=== PATIENT | female | born 1970 | race Caucasian/White ===

== ENCOUNTER 2017-06-01 07:33 | Emergency (ER) | payer OTHER ==
[2017-06-01 08:09] VITALS: BP 130/62
--- NOTE | 2017-06-01 08:37 | UC ---
Throat Pain/Nasal Tom HPI - HPI Summary HPI Summary: Three weeks of congestion and now cough is getting painful with right neck strain. NO fever. No hemoptysis. - History of Current Complaint Chief Complaint: UCRespiratory Stated Complaint: SWO[place]EN GLANDS Time Seen by Provider: 06/01/17 08:08 Hx Obtained From: Patient Hx Last Menstrual Period: 12 YRS Onset/Duration: Gradual Onset, Lasting Weeks, Still Present Severity: Moderate Pain Intensity: 5 Cough: Nonproductive Associated Signs & Symptoms: Positive: Nasal Discharge. Negative: Fever, Vomiting, Rash - Epiglottits Risk Factors Epiglottis Risk Factors: Negative - Allergies/Home Medications Allergies/Adverse Reactions: Allergies Allergy/AdvReac Type Severity Reaction Status Date / Time No Known Allergies Allergy Verified 06/01/17 07:59 Home Medications: Home Medications Dm/Acetaminophen/Doxylamine [Vicks Nyquil Cold & Flu N] 1 liq PO BEDTIME PRN [History Confirmed 06/01/17] PMH/Surg Hx/FS Hx/Imm Hx Previously Healthy: Yes - Surgical History Surgical History: Yes Surgery Procedure, Year, and Place: Hysterectomy, Cholecystectomy, Oopherectomies, Ovarian Cysts - Family History Known Family History: Positive: Hypertension - Social History Lives: With Family Alcohol Use: Occasionally Substance Use Type: None Smoking Status (MU): Former Smoker Type: Cigarettes Amount Used/How Often: 1/10 PPD Length of Time of Smoking/Using Tobacco: On and Off for 31 Years Have You Smoked in the Last Year: Yes When Did the Patient Quit Smoking/Using Tobacco: 1 week - Immunization History Most Recent Influenza Vaccination: none Review of Systems ENT: Sinus Congestion Respiratory: Cough All Other Systems Reviewed And Are Negative: Yes Physical Exam Triage Information Reviewed: Yes Appearance: Well-Appearing, No Pain Distress, Obese Vital Signs: Initial Vital Signs Temp 98.3 F 06/01/17 08:02 Pulse 71 06/01/17 08:02 Resp 18 06/01/17 08:02 BP 130/62 06/01/17 08:02 Pulse Ox 99 06/01/17 08:02 Vital Signs Reviewed: Yes Eyes: Positive: Conjunctiva Clear ENT: Positive: Pharyngeal erythema, Nasal congestion, TMs normal, Uvula midline. Negative: Nasal drainage, TM bulging, TM dull, TM red, Tonsillar swelling, Tonsillar exudate, Trismus, Muffled voice, Sinus tenderness Neck: Positive: Supple, Nontender, No Lymphadenopathy Respiratory: Positive: Lungs clear, Normal breath sounds, No respiratory distress, No accessory muscle use, Rhonchi. Negative: Respiratory distress, Decreased breath sounds, Accessory muscle use, Crackles, Stridor, Wheezing Cardiovascular: Positive: No Murmur, Pulses Normal, Brisk Capillary Refill Abdomen Description: Positive: No Organomegaly, Soft. Negative: CVA Tenderness (R), CVA Tenderness (L), Distended, Guarding Musculoskeletal: Positive: Strength Intact, ROM Intact, No Edema Neurological: Positive: Alert, Muscle Tone Normal. Negative: Fatigued Psychological: Positive: Age Appropriate Behavior Skin: Negative: rashes Throat Pain/Nasal Course/Dx - Differential Dx/Diagnosis Provider Diagnoses: uri. bronchitis Discharge - Discharge Plan Condition: Good Disposition: HOME Prescriptions: Azithromyxin ZARA (NF) [Z-Zara (Zithromax) 250 mg tabs #6] 2 tab PO .TODAY, THEN 1 DAILY #6 tab Referrals: Delores Hawk MD [Primary Care Provider] -
== END 2017-06-01 08:47 | disposition home or self-care (01) ==
LOC: UCCORT 07:33
DX: J06.9 Acute upper respiratory infection, unspecified (principal); J40 Bronchitis, not specified as acute or chronic; Z87.891 Personal history of nicotine dependence
CPT/HCPCS: 99212; G0463

== ENCOUNTER 2018-05-24 07:28 | Emergency (ER) | payer SELFPAY ==
[2018-05-24 07:38] VITALS: BP 161/51
--- NOTE | 2018-05-24 07:52 | UC ---
Abdominal Pain Female HPI - HPI Summary HPI Summary: 48-year-old female comes to clinic today with a chief complaint of 2 days of lower abdominal pain. It's midline. Hurts more with movement or having a bowel movement or urinating. She's had multiple surgeries it to include a hysterectomy and her gallbladder out. She still has her appendix. No burning with urination. Stools have not changed in consistency but occasionally to have mucus in them. No fevers measured she has had some chills. Pain is moderate to severe. - History of Current Complaint Chief Complaint: UCAbdominalPain Stated Complaint: ABD PAIN Time Seen by Provider: 05/24/18 07:51 Hx Last Menstrual Period: 12 YRS Pain Intensity: 10 Allergies/Adverse Reactions: Allergies Allergy/AdvReac Type Severity Reaction Status Date / Time No Known Allergies Allergy Verified 05/24/18 07:36 Home Medications: Home Medications NK [No Home Medications Reported] 05/24/18 [History Confirmed 05/24/18] PMH/Surg Hx/FS Hx/Imm Hx Previously Healthy: Yes - Surgical History Surgical History: Yes Surgery Procedure, Year, and Place: Hysterectomy, Cholecystectomy, Oopherectomies, Ovarian Cysts - Family History Known Family History: Positive: Hypertension - Social History Alcohol Use: Occasionally Substance Use Type: None Smoking Status (MU): Light Every Day Tobacco Smoker Type: Cigarettes Amount Used/How Often: 1/10 PPD Length of Time of Smoking/Using Tobacco: On and Off Since Age 17 Have You Smoked in the Last Year: Yes When Did the Patient Quit Smoking/Using Tobacco: 1 week - Immunization History Most Recent Influenza Vaccination: none Review of Systems All Other Systems Reviewed And Are Negative: Yes Constitutional: Positive: Chills Skin: Positive: Negative Eyes: Positive: Negative ENT: Positive: Negative Respiratory: Positive: Negative Cardiovascular: Positive: Negative Gastrointestinal: Positive: Abdominal Pain Genitourinary: Positive: Negative Motor: Positive: Negative Neurovascular: Positive: Negative Musculoskeletal: Positive: Negative Neurological: Positive: Negative Psychological: Positive: Negative Is Patient Immunocompromised?: No Physical Exam Triage Information Reviewed: Yes Appearance: Well-Nourished, Ill-Appearing - MILD, Pain Distress - MILD Vital Signs: Initial Vital Signs Temp 98.4 F 05/24/18 07:33 Pulse 104 05/24/18 07:33 Resp 20 05/24/18 07:33 BP 161/51 05/24/18 07:33 Pulse Ox 100 05/24/18 07:33 Vital Signs Reviewed: Yes Eye Exam: Normal Eyes: Positive: Conjunctiva Clear Neck exam: Normal Neck: Positive: Supple Respiratory: Positive: Lungs clear, Normal breath sounds, No respiratory distress Cardiovascular: Positive: Tachycardia Bowel Sounds: Positive: Hypoactive Pelvic Exam: Positive: Other - Patient is tender to palpation in the suprapubic area midline lower abdomen. She does have rebound. Not tympanitic. Musculoskeletal Exam: Normal Musculoskeletal: Positive: Strength Intact, ROM Intact Neurological Exam: Normal Neurological: Positive: Alert, Muscle Tone Normal Psychological Exam: Normal Psychological: Positive: Normal Response To Family, Age Appropriate Behavior Skin Exam: Normal Abd Pain Female Course/Dx - Course Course Of Treatment: With her abdominal pain and the need for real-time lab work and IV pain control I recommended patient go to the emergency department. She wishes to go by POV and her daughter is here to drive her. I spoke with Nelly in the [place] emergency department. - Differential Dx/Diagnosis Provider Diagnosis: Abdominal pain, lower Discharge - Sign-Out/Discharge Documenting (check all that apply): Patient Departure All imaging exams completed and their final reports reviewed: No Studies - Discharge Plan Condition: Stable Disposition: HOME-RECOMMEND TO ED Patient Education Materials: Abdominal Pain (ED) Referrals: [facility] [place] [facility]IAN REFERRAL [Outside] Additional Instructions: GO DIRECTLY TO THE EMERGENCY DEPARTMENT FOR FURTHER EVALUATION. - Billing Disposition and Condition Condition: STABLE Disposition: Home-Recommend to ED
== END 2018-05-24 07:57 | disposition home health service (06) ==
LOC: UCCORT 07:28
DX: R10.30 Lower abdominal pain, unspecified (principal); F17.210 Nicotine dependence, cigarettes, uncomplicated; Z90.710 Acquired absence of both cervix and uterus; Z90.49 Acquired absence of other specified parts of digestive tract
CPT/HCPCS: 81003; 99212; G0463